=== PATIENT | male | born 1960 | race African-American/Black ===

== ENCOUNTER → 2018-07-14 | Day surgery (SDC) | payer OTHER ==
[~2018-07-14] MED LIST: BUPIVACAINE 0.25% 30ML SDV INJ ONE; CEFAZOLIN SOD 1 GM/D5W 50ML 50 ML IV ONE; DEXAMETHASONE SOD PHOS INJ 4 MG/ML VIAL ONE; FENTANYL CITRATE/PF 100MCG/2 ML INJ ONE; LEVAQUIN500 MG PO; LIDOCAINE HCL 2% LOCAL INJ 5 ML SDV VIAL INJ ONE; MIDAZOLAM HCL 2 MG/2 ML VIAL ONE; ONDANSETRON HCL INJ 2 MG/ML VIAL ONE; PROPOFOL IV EMULSION 10 MG/ML 20 ML VIAL ONE; SEVOFLURANE INHAL SOLN 250 ML PEN BTL ONE; SILVER SULFADIAZINE 50GM CREAM TOP ONE; SIMVASTATIN40 MG PO
[2018-07-14 11:30] VITALS: BP 109/82
--- NOTE | 2018-07-16 17:30 | Operative Report ---
DATE OF PROCEDURE: July 14, 2018 PREOPERATIVE DIAGNOSIS: Condyloma of the penis. POSTOPERATIVE DIAGNOSIS: Condyloma of the penis. PROCEDURE: Laser fulguration of penile condyloma, greater than 3 cm2 burden. ANESTHESIA: General. ESTIMATED BLOOD LOSS: Minimal. COMPLICATIONS: None. INDICATIONS: Mr. Boykin is a 58-year-old male with a longstanding history of condyloma and now presents for definitive management. He and I had a long discussion about alternatives, risks and benefits, including doing nothing, laser excision versus the options, alternatives, risks, and benefits, elected to proceed with laser fulguration that may offer the best cosmetic benefits. PROCEDURE IN DETAIL: After informed consent was obtained, the patient was taken to the operative suite. He was placed supine on the operating table. He underwent general anesthesia by anesthesia service. Utilizing a smoke evacuator and all staff had protective masks, laser was then utilized in standard fashion to ablate the condyloma. Hemostasis was noted to be excellent. Patient tolerated the procedure well, was awakened from anesthesia, and transported to recovery room in excellent condition. No intraoperative complications noted. Job#: [id number] [id number]
== END | disposition home or self-care (01) ==
LOC: OR 08:03 → EDBD 10:00
PROVIDERS: ATTEND Urology
DX: A63.0 Anogenital (venereal) warts (principal); E78.5 Hyperlipidemia, unspecified; Z01.810 Encounter for preprocedural cardiovascular examination; Z87.891 Personal history of nicotine dependence
CPT/HCPCS: 54055; 93005; J0690; J1100; J2001; J2250; J2405; J2704

== ENCOUNTER → 2019-04-04 | Day surgery (SDC) | payer OTHER ==
[~2019-04-04] MED LIST changes: -BUPIVACAINE 0.25% 30ML SDV INJ ONE; -CEFAZOLIN SOD 1 GM/D5W 50ML 50 ML IV ONE; +CEFAZOLIN SOD 1 GM/NS 50ML 50 ML IV ONE; -ONDANSETRON HCL INJ 2 MG/ML VIAL ONE; +ONDANSETRON HCL INJ 2MG/ML 2ML 2 MG/ML VIAL ONE; -SILVER SULFADIAZINE 50GM CREAM TOP ONE
[2019-04-04 08:20] VITALS: BP 112/93
--- NOTE | 2019-04-10 13:14 | Operative Report ---
DATE OF PROCEDURE: 04/04/2019 SURGEON: Alfonso Burger MD PREOPERATIVE DIAGNOSIS: Penile condyloma. POSTOPERATIVE DIAGNOSIS: Penile condyloma. PROCEDURE: Laser fulguration of condyloma, extensive. ANESTHESIA: General. ESTIMATED BLOOD LOSS: Minimal. COMPLICATIONS: None. INDICATIONS: Mr. Boykin is a 59-year-old male with a history of large greater than 4 cm2 burden of penile condyloma. He and I had a long discussion about alternatives, risks, and benefits of doing nothing, excision, and laser. He voiced understanding of options, alternatives, risks, and benefits, and he elected to proceed. PROCEDURE IN DETAIL: After informed consent was obtained, the patient was taken to the operative suite, placed supine on the operating table, and underwent general anesthesia by Anesthesia Service. Our staff was utilizing laser protective filtration masks and vacuum filtration device, the laser was utilized in standard fashion to obliterate the condyloma. Hemostasis noted to be excellent. The patient tolerated the procedure well and transported to the recovery room in excellent condition. No untoward effects noted. Alfonso Burger MD ES/MODL /[id number]
== END | disposition home or self-care (01) ==
LOC: OR 05:09
PROVIDERS: ATTEND Urology
DX: A63.0 Anogenital (venereal) warts (principal); R97.20 Elevated prostate specific antigen [PSA]; N40.1 Benign prostatic hyperplasia with lower urinary tract symptoms; N48.89 Other specified disorders of penis; R35.1 Nocturia; R39.14 Feeling of incomplete bladder emptying; Z91.19 Patient's noncompliance with other medical treatment and regimen; I10 Essential (primary) hypertension; Z01.810 Encounter for preprocedural cardiovascular examination
CPT/HCPCS: 54065; 93005; J0690; J1100; J2001; J2250; J2405; J2704; J3010